=== PATIENT | female | born 1975 | race Asian ===

== ENCOUNTER 2016-11-29 16:38 | Emergency (ER) | payer OTHER ==
[~2016-11-29] VITALS: Ht 154.9 cm; Wt 49.9 kg
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
--- NOTE | 2016-11-29 16:40 | NUR ---
ER at bedside examining patient.
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
[2016-11-29 16:44] VITALS: BP 145/85; PULSE 86; RESP 16; TEMP 98.1; O2SAT 98
[2016-11-29] MEDS ORDERED: LORazepam 2 MG/ML VIAL (FOR ER USE) IVP ONE (16:45)
[2016-11-29] MEDS ORDERED: NACL 0.9% 1,000 ML IV ONE (17:00)
[2016-11-29] MEDS ORDERED: KETOROLAC TROMETHAMINE 30 MG VIAL IVP ONE (17:00)
[2016-11-29 17:11] LABS: BASOPHILS % (AUTO) 0.4 % (0.0-2.0); EOSINOPHILS # (AUTO) 0.1 K/uL (0.0-0.4); EOSINOPHILS % (AUTO) 1.1 % (0.0-4.0); HEMATOCRIT 39.7 % (36-48); LYMPHOCYTES # (AUTO) 1.2 K/uL (1.0-5.5); LYMPHOCYTES % (AUTO) 12.3 % (20.5-51.5); MEAN CORPUSCULAR HEMOGLOBIN 28 pg (27-31); MEAN CORPUSCULAR HGB CONC 33 % (32-36); MEAN CORPUSCULAR VOLUME 85 fL (79.0-98.0); MONOCYTES # (AUTO) 0.6 K/uL (0.0-1.0); MONOCYTES % (AUTO) 6.5 % (1.7-9.3); NEUTROPHILS # (AUTO) 7.8 K/uL (1.8-7.7); NEUTROPHILS % (AUTO) 79.7 % (40.0-70.0); PLATELET COUNT (AUTO) 231 K/uL (130-430); RED BLOOD CELL COUNT(AUTO) 4.68 MIL/uL (4.2-6.2); RED CELL DISTRIBUTION WIDTH 12.3 % (9.0-15.0); WHITE BLOOD COUNT (AUTO) 9.7 K/uL (4.8-10.8)
--- NOTE | 2016-11-29 17:15 | NUR ---
PT TOLERATED MEDICATION WELL.
[2016-11-29 17:21] LABS: ANION GAP 11 (5-15); CALCIUM 8.6 mg/dL (8.4-11.0); CHLORIDE 104 mmol/L (98-107); CREATININE 1.09 mg/dL (0.55-1.30); GLUCOSE 141 mg/dL (70-99); POTASSIUM 3.6 mmol/L (3.5-5.1); SODIUM SERUM 141 mmol/L (136-145); UREA NITROGEN, BLOOD 12 mg/dL (8-21)
[2016-11-29 17:24] LABS: GFR AFRICAN AMERICAN 71 mL/min (>90)
[2016-11-29 17:25] LABS: PROTHROMBIN TIME 10.4 SECS (9.5-12.5)
[2016-11-29 17:27] LABS: ALANINE AMINOTRANSFERASE 24 U/L (12-78); ALCOHOL, BLOOD < 3 mg/dL (<10); ASPARTATE AMINOTRANSFERASE 27 U/L (10-37); SALICYLATE < 1 mg/dL (3-30); TOTAL BILIRUBIN 0.2 mg/dL (0.0-1.0); TOTAL PROTEIN, SERUM 7.7 g/dL (6.4-8.3)
[2016-11-29 17:29] LABS: ACETAMINOPHEN < 1 ug/mL (1-30)
--- NOTE | 2016-11-29 17:45 | NUR ---
PT SPEAKING ABLE TO FOLLOW COMMANDS AND COHERENTLY.
--- NOTE | 2016-11-29 17:48 | NUR ---
Patient transported to radiology via GURNEY, accompanied by RAD STAFF.
[2016-11-29 17:52] LABS: BILIRUBIN,URINE NEGATIVE (NEGATIVE); BLOOD, URINE NEGATIVE (NEGATIVE); CLARITY/URINE CLEAR (CLEAR); COLOR,URINE YELLOW (YELLOW); GLUCOSE,URINE NEGATIVE (NEGATIVE); KETONES,URINE NEGATIVE (NEGATIVE); LEUKOCYTE ESTERASE ,URINE NEGATIVE (NEGATIVE); NITRITE, URINE NEGATIVE (NEGATIVE); PH,URINE 8.5 (5.0-8.0); PROTEIN URINE TRACE (NEGATIVE); UROBILINOGEN,URINE 0.2 (0.2-1.0)
--- NOTE | 2016-11-29 17:58 | NUR ---
PT RETURNED FROM RAD TOLERATED WELL.
[2016-11-29 18:08] LABS: BACTERIA,URINE FEW /HPF (None Seen); MUCUS,URINE 1+ /LPF (None Seen)
[2016-11-29 18:18] LABS: BARBITURATE, URINE NEGATIVE (NEG <=200); BENZODIAZEPINE, URINE NEGATIVE (NEG <=150); CANNABINOID, URINE NEGATIVE (NEG <=50); COCAINE, URINE NEGATIVE (NEG <=150); METHAMPHETAMINES SCREEN,URINE NEGATIVE (NEG <=500); OPIATE, URINE NEGATIVE (NEG <=100); PHENCYCLIDINE SCREEN,URINE NEGATIVE (NEG <=25); UR TRICYCLIC ANTIDEPRESSANTS NEGATIVE (NEG <=300); URINE AMPHETAMINE NEGATIVE (NEG <=500); URINE METHADONE NEGATIVE (NEG <=200); URINE OXYCODONE SCREEN NEGATIVE (NEG <=100); URINE PROPOXYPHENE SCREEN NEGATIVE (NEG <=300)
[2016-11-29 19:10] VITALS: BP 128/86; PULSE 79; RESP 16; TEMP 98; O2SAT 98
--- NOTE | 2016-11-29 19:10 | NUR ---
Patient given written and verbal discharge instructions and verbalizes understanding. ER MD discussed with patient the results and treatment provided. Patient in stable condition. ID arm band removed. IV catheter removed intact and dressing applied, no active bleeding. Patient educated on pain management and to follow up with PMD. Pain Scale 0. Opportunity for questions provided and answered.
== END 2016-11-29 19:10 | disposition home or self-care (01) ==
LOC: SED 16:38
DX: F41.9 Anxiety disorder, unspecified (principal)
CPT/HCPCS: 36415; 70450; 80053; 80307; 81000; 84484; 85025; 85610; 85730; 87086; 93005; 96361; 96374; 96375; 99285; G0480; G0481; G0482; J1885; J2060; J7030